=== PATIENT | female | born 1970 | race African-American/Black ===

== ENCOUNTER 2016-05-15 09:36 | Emergency (ER) | payer MEDICAID ==
[~2016-05-15] VITALS: Ht 162.6 cm; Wt 110.0 kg
[2016-05-15 10:16] VITALS: BP 164/72; PULSE 84; RESP 18; TEMP 98.1; O2SAT 98
[2016-05-15 12:02] LABS: BASOPHIL # 0.1 TH/MM3 (0-0.2); EOSINOPHIL # 0.1 TH/MM3 (0-0.4); EOSINOPHIL % 0.9 % (0.0-4.0); HEMATOCRIT 33.1 % (35.0-46.0); HEMO FLAGS DIFF FINAL; LYMPH % 18.4 % (9.0-44.0); LYMPHOCYTE # 1.8 TH/MM3 (1.0-4.8); MEAN CELL VOLUME 84.6 FL (80.0-100.0); MEAN CORPUSCULAR HEMOGLOBIN 28.7 PG (27.0-34.0); MEAN CORPUSCULAR HGB CONC 33.9 % (32.0-36.0); MONO % 7.5 % (0.0-8.0); NEUT % 72.2 % (16.0-70.0); PLATELET COUNT 411 TH/MM3 (150-450); RED BLOOD COUNT 3.91 MIL/MM3 (4.00-5.30); RED CELL DISTRIBUTION WIDTH 14.4 % (11.6-17.2); WHITE BLOOD COUNT 9.6 TH/MM3 (4.0-11.0)
[2016-05-15 12:19] LABS: ANION GAP 8 MEQ/L (5-15); AST (GOT) 10 U/L (15-37); BICARBONATE 23.9 MEQ/L (21.0-32.0); BLOOD UREA NITROGEN 10 MG/DL (7-18); CHLORIDE 104 MEQ/L (98-107); GLOMERULAR FILTRATION RATE 115 ML/MIN (>89); POTASSIUM 3.9 MEQ/L (3.5-5.1); SODIUM (NA) 136 MEQ/L (136-145)
[2016-05-15 12:30] LABS: BLOOD, URINE MOD (NEG); GLUCOSE,URINE NEG (NEG); KETONE, URINE NEG (NEG); MUCUS URINE FEW /lpf (OCC); NITRITE,URINE NEG (NEG); PH, URINE 5.5 (5.0-8.5); SQUAMOUS EPITHELIAL CELL URINE 32 /hpf (0-5); URINE COLOR YELLOW (YELLW/STRAW)
[2016-05-15 12:34] LABS: COMMENT (UR) CULT NOT INDICATED; CULTURE IF INDICATED CULT NOT INDICATED
[2016-05-15 12:36] LABS: ALKALINE PHOSPHATASE 72 U/L (45-117); ALT (GPT) 18 U/L (10-53); BETA HCG QUANT 26060 MIU/ML (0-5); TOTAL BILIRUBIN ADULT 0.2 MG/DL (0.2-1.0)
--- NOTE | 2016-05-15 14:06 | PD ---
HPI Chief Complaint: Related Problem Time Seen by Provider: 11:32 Travel History International Travel<30 days: No Contact w/Intl Traveler<30days: No Traveled to known affect area: No History of Present Illness HPI Patient is a 45-year-old female who comes in because she noticed some spotting when she went to the bathroom earlier today. She is approximately 12-14 weeks , this is her 10th . She says she has occasional cramping and nausea, but this is normal for her. She denies any passage of clots or material. She denies any dysuria. She has not seen an OB yet for this . [facility] Past Medical History Medical History: Denies Significant Hx Diminished Hearing: No Tetanus Vaccination: < 5 Years ?: : 9 Para: 8 Miscarriage: 1 Past Surgical History Section: Yes (X4) Social History Alcohol Use: No Tobacco Use: No Substance Use: No Allergies-Medications (Allergen,Severity, Reaction): Coded Allergies: No Known Allergies (Verified , 05/15/16) Reported Meds & Prescriptions Reported Meds & Active Scripts Active Prenate Mini 18-0.6-0.4-350 mg ( W/O Vit A W/ Fe Carbo) 1 Cap Cap Review of Systems Except as stated in HPI: all other systems reviewed are Neg General / Constitutional: No: Fever, Chills Eyes: No: Blurred Vision HENT: No: Headaches, Lightheadedness Cardiovascular: No: Chest Pain or Discomfort Respiratory: No: Shortness of Breath Gastrointestinal: Positive: Nausea, Abdominal Pain Genitourinary: Positive: Vaginal Bleeding, No: Dysuria Neurologic: No: Weakness, Dizziness Physical Exam Narrative GENERAL: Awake and alert in no acute distress. SKIN: Warm and dry. HEAD: Atraumatic. Normocephalic. EYES: Pupils equal and round. No scleral icterus. ENT: No nasal bleeding or discharge. Mucous membranes pink and moist. NECK: Trachea midline. No JVD. CARDIOVASCULAR: Regular rate and rhythm. No murmur appreciated. RESPIRATORY: No accessory muscle use. Clear to auscultation. Breath sounds equal bilaterally. GASTROINTESTINAL: Abdomen soft, non-tender, nondistended. No CVA tenderness. 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 No bleeding seen. No CMT. MUSCULOSKELETAL: No obvious deformities. No clubbing. No cyanosis. No edema. NEUROLOGICAL: Awake and alert. No obvious cranial nerve deficits. Motor grossly within normal limits. Normal speech. PSYCHIATRIC: Appropriate mood and affect; insight and judgment normal. Data Data Last Documented VS Vital Signs Date Time Temp Pulse Resp B/P Pulse Ox O2 Delivery O2 Flow Rate FiO2 05/15/16 10:16 98.1 84 18 164/72 98 Orders Complete Blood Count With Diff (05/15/16 11:38) Comprehensive Metabolic Panel (05/15/16 11:38) Urinalysis - C+S If Indicated (05/15/16 11:38) Beta Hcg (Quant/Titer) (05/15/16 11:38) Ed Poc Ultrasound (05/15/16 ) Labs Laboratory Tests Test 05/15/16 05/15/16 11:50 12:00 White Blood Count 9.6 TH/MM3 Red Blood Count 3.91 MIL/MM3 Hemoglobin 11.2 GM/DL Hematocrit 33.1 % Mean Corpuscular Volume 84.6 FL Mean Corpuscular Hemoglobin 28.7 PG Mean Corpuscular Hemoglobin 33.9 % Concent Red Cell Distribution Width 14.4 % Platelet Count 411 TH/MM3 Mean Platelet Volume 6.5 FL Neutrophils (%) (Auto) 72.2 % Lymphocytes (%) (Auto) 18.4 % Monocytes (%) (Auto) 7.5 % Eosinophils (%) (Auto) 0.9 % Basophils (%) (Auto) 1.0 % Neutrophils # (Auto) 7.0 TH/MM3 Lymphocytes # (Auto) 1.8 TH/MM3 Monocytes # (Auto) 0.7 TH/MM3 Eosinophils # (Auto) 0.1 TH/MM3 Basophils # (Auto) 0.1 TH/MM3 CBC Comment DIFF FINAL Differential Comment Sodium Level 136 MEQ/L Potassium Level 3.9 MEQ/L Chloride Level 104 MEQ/L Carbon Dioxide Level 23.9 MEQ/L Anion Gap 8 MEQ/L Blood Urea Nitrogen 10 MG/DL Creatinine 0.67 MG/DL Estimat Glomerular Filtration 115 ML/MIN Rate Random Glucose 81 MG/DL Calcium Level 8.3 MG/DL Total Bilirubin 0.2 MG/DL Aspartate Amino Transf 10 U/L (AST/SGOT) Alanine Aminotransferase 18 U/L (ALT/SGPT) Alkaline Phosphatase 72 U/L Total Protein 7.5 GM/DL Albumin 2.9 GM/DL Human Chorionic Gonadotropin, 58907 MIU/ML Quant Urine Color YELLOW Urine Turbidity HAZY Urine pH 5.5 Urine Specific [place] 1.021 Urine Protein TRACE mg/dL Urine Glucose (UA) NEG mg/dL Urine Ketones NEG mg/dL Urine Occult Blood MOD Urine Nitrite NEG Urine Bilirubin NEG Urine Urobilinogen LESS THAN 2.0 MG/DL Urine Leukocyte Esterase SMALL Urine RBC 2 /hpf Urine WBC 3 /hpf Urine Squamous Epithelial 32 /hpf Cells Urine Mucus FEW /lpf Microscopic Urinalysis Comment CULT NOT INDICATED MDM Medical Decision Making Medical Screen Exam Complete: Yes Emergency Medical Condition: Yes Medical Record Reviewed: Yes Differential Diagnosis Threatened versus UTI versus pyelonephritis versus completed miscarriage versus missed Narrative Course Patient is a 45-year-old female who comes in complaining of vaginal spotting. Exam shows no active bleeding at this time. Patient was here previously and has Rh+ blood. Labs sent show hemoglobin within normal limits. Urinalysis is negative for infection. Ultrasound is very limited, however when the hydraulic technician placed the probe on her belly she was able to confirm an IUP. She says that the is greater than 13 weeks, so she cannot do any official ultrasound. As patient is no longer bleeding, and the is seen in the uterus, patient will be discharged home, advised to follow-up with OB. Patient advised to practice pelvic rest. Advised to return to the ED if she has any increased bleeding, or any worsening symptoms. Diagnosis Primary Impression: Threatened Referrals: Edwar Daugherty MD call for appointment Patient Instructions: General Instructions, Threatened Miscarriage (ED) Additional Instructions: Follow up with OB. Practice pelvic rest for the next 1-2 weeks. Drink plenty of fluids. Return to the ED immediately if you have worsening bleeding or any worsening symptoms. Disposition: 01 DISCHARGE HOME Condition: Stable Majo Ng MD May 15, 2016 14:06 Majo Ng MD May 15, 2016 14:06
== END 2016-05-15 14:32 | disposition home or self-care (01) ==
LOC: NEPE 09:36
DX: O20.0 Threatened abortion (principal); Z3A.14 14 weeks gestation of pregnancy
CPT/HCPCS: 80053; 81001; 84702; 85025

== ENCOUNTER → 2016-06-26 | Outpatient (CLI) | payer MEDICAID | LOC: HPND 08:47 | PROVIDERS: ATTEND Obstetrics & Gynecology | DX: O09.522 Supervision of elderly multigravida, second trimester (principal); O99.212 Obesity complicating pregnancy, second trimester; O35.1XX0 Maternal care for (suspected) chromosomal abnormality in fetus, not applicable or unspecified | CPT/HCPCS: 76805 ==

== ENCOUNTER → 2016-07-24 | Outpatient (CLI) | payer MEDICAID | LOC: HPND 10:03 | PROVIDERS: ATTEND Obstetrics & Gynecology | DX: O09.522 Supervision of elderly multigravida, second trimester (principal); O35.1XX0 Maternal care for (suspected) chromosomal abnormality in fetus, not applicable or unspecified; O99.212 Obesity complicating pregnancy, second trimester; Z68.43 Body mass index [BMI] 50.0-59.9, adult; Z3A.23 23 weeks gestation of pregnancy | CPT/HCPCS: 76811 ==

== ENCOUNTER → 2016-08-22 | Outpatient (CLI) | payer MEDICAID | LOC: HPND 13:35 | PROVIDERS: ATTEND Obstetrics & Gynecology | DX: O09.522 Supervision of elderly multigravida, second trimester (principal); O99.212 Obesity complicating pregnancy, second trimester; E66.01 Morbid (severe) obesity due to excess calories; Z68.43 Body mass index [BMI] 50.0-59.9, adult; Z3A.27 27 weeks gestation of pregnancy | CPT/HCPCS: 76816 ==

== ENCOUNTER 2016-09-09 11:01 | Emergency (ER) | payer MEDICAID ==
[~2016-09-09] VITALS: Ht 162.6 cm; Wt 151.5 kg
--- NOTE | 2016-09-09 11:41 | PD ---
HPI Chief Complaint Headache Date Seen: Sep 09, 2016 Time Seen: 11:15 Travel History International Travel<30 Days: No Contact w/Intl Traveler<30Days: No Known Affected Area: No History of Present Illness HPI 46-year-old 10 para 8 Ab1 with 7 living children at 31+ weeks gestation who comes today for pain over her left eye. The patient states that she was concerned this might indicate her blood pressure was 5. She is not taken anything for the pain. She describes it as mild and throbbing. She states that she has this type of headache when she is not and it usually occurs when she is tired. She states that occurred this morning and therefore concerned her that maybe it represented high blood pressure. She denies any visual changes, weakness, dizziness, swelling or abdominal pain. Para: 8 : 10 Miscarriage: 1 History Past Medical History Narrative Medical No known allergies No chronic diseases No medications Obstetric History Obstetric History For prior C-sections, 4 prior vaginal deliveries She receives care at [facility] but can't remember her doctor's name. She states this has been uncomplicated other than delayed diagnosis because she was unaware that she was and thought she might be going through menopause Past Surgical History Narrative Surgical 4 prior C-sections Family History Family History: Negative Social History Alcohol Use: No Tobacco Use: No Substance Abuse: No Allergies-Medications (Allergen,Severity, Reaction): Coded Allergies: No Known Allergies (Verified , 05/15/16) Home Meds Active Scripts W/O Vit A W/ Fe Carbo (Prenate Mini 18-0.6-0.4-350 mg)1 Cap Cap Sample #2 Prov:Crystal Bryant CNM [facility] 04/11/16 Review of Systems Except as stated in HPI: all other systems reviewed are Neg Physical Exam Narrative GENERAL: Well-nourished, well-developed patient. SKIN: Warm and dry. HEAD: Normocephalic and atraumatic. EYES: No scleral icterus. No injection or drainage. ENT: No nasal drainage noted. Mucous membranes pink. Airway patent. NECK: Supple, trachea midline. No JVD. ABDOMEN/GI: Abdomen soft, non-tender, bowel sounds present, no rebound, no guarding Gravid to [-] weeks size Fundal Height: [-] GENITOURINARY: External Genitalia: intact and normal in appearance BUS glands: [-] Cervix: [-] Dilatation: [-] Effacement: [-] Station: [-] Presentation: [-] Membranes: [intact or ruptured] Uterine Contractions: [-] FHT's: Category: [-] Baseline: [-] Reactive: [-] Variability: [-] Decels: [-] EXTREMITIES: No cyanosis or edema. BACK: Nontender without obvious deformity. No CVA tenderness. NEUROLOGICAL: Awake and alert. Motor and sensory grossly within normal limits. Five out of 5 muscle strength in all muscle groups. Normal speech. Data Data Vital Signs Reviewed: Yes MDM Medical Record Reviewed: Yes Narrative Course / MDM Assessment: Grand multipara at 31+ weeks gestation with mild headache and normal blood pressure Plan: The patient was discharged home with instructions to take Tylenol for her headache. She has a visit on Saturday and was encouraged to keep that appointment. Diagnosis Diagnosis: Primary Impression: 31 weeks gestation of Additional Impression: Head ache Disposition: DISCHARGE HOME Scott Bond MD Sep 09, 2016 11:40
== END 2016-09-09 12:42 | disposition home or self-care (01) ==
LOC: HOBED 11:01
DX: O26.93 Pregnancy related conditions, unspecified, third trimester (principal); R51 Headache; Z3A.31 31 weeks gestation of pregnancy
CPT/HCPCS: 99284

== ENCOUNTER → 2016-09-24 | Outpatient (CLI) | payer MEDICAID | LOC: HPND 13:00 | PROVIDERS: ATTEND Obstetrics & Gynecology | DX: O99.213 Obesity complicating pregnancy, third trimester (principal); O09.523 Supervision of elderly multigravida, third trimester | CPT/HCPCS: 76816 ==

== ENCOUNTER 2017-05-13 12:37 | Emergency (ER) | payer MEDICAID ==
[~2017-05-13] VITALS: Ht 162.6 cm; Wt 120.0 kg
[2017-05-13 12:41] VITALS: BP 151/70; PULSE 80; RESP 20; TEMP 99; O2SAT 100
[2017-05-13] MEDS ORDERED: KETOROLAC TROMETHAMINE 30 MG/ML (IVP) VIAL IV PUSH ONE (13:00)
[2017-05-13] MEDS ORDERED: SODIUM CHLORIDE 0.9% FLUSH 10 ML FLUSH IVF PRN (13:00)
--- NOTE | 2017-05-13 13:00 | PD ---
HPI Chief Complaint: Musculoskeletal Complaint Time Seen by Provider: 12:52 Travel History International Travel<30 days: No Contact w/Intl Traveler<30days: No Traveled to known affect area: No History of Present Illness HPI WOKE UP AT 3AM WITH SHARP , RIGHT SIDED CHEST PAIN ALONG MID AXILLARY LINE/ REGION, NONRADIATING, 12/20, STATES WITH OCCASIONAL COUGH/PROD YELLOW SPUTUM WELL...PATIENT STATES WORSENED WITH BREATHING. DENIES ANY ALLEVIATING FACTORS. ...DENIES ASSOC FACTORS SUCH FEVER/N/V/D/MOON/ABDPAIN/BACK PAIN. 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 : 9 Para: 8 Miscarriage: 1 Past Surgical History Section: Yes (X4) Social History Alcohol Use: No Tobacco Use: No Substance Use: No Allergies-Medications (Allergen,Severity, Reaction): Coded Allergies: No Known Allergies (Verified Allergy, Unknown, 05/13/17) Reported Meds & Prescriptions Reported Meds & Active Scripts Active Ultram (Tramadol HCl) 50 Mg Tab 50 Mg PO Q4H PRN Zithromax Z-Manny (Azithromycin) 250 Mg Dspk 250 Mg PO DIRECTED 500 MG (2 tabs) day 1, then 1 tab days 2-5. Physical Exam Narrative GENERAL: SKIN: Warm and dry. HEAD: Atraumatic. Normocephalic. EYES: Pupils equal and round. No scleral icterus. No injection or drainage. ENT: No nasal bleeding or discharge. Mucous membranes pink and moist. NECK: Trachea midline. No JVD. CARDIOVASCULAR: Regular rate and rhythm. RESPIRATORY: No accessory muscle use. Clear to auscultation. Breath sounds equal bilaterally. REPRODUCIBLE CHEST WALL PAIN GASTROINTESTINAL: Abdomen soft, non-tender, nondistended. MUSCULOSKELETAL: Extremities without clubbing, cyanosis, or edema. No obvious deformities. NEUROLOGICAL: Awake and alert. No obvious cranial nerve deficits. Motor grossly within normal limits. Five out of 5 muscle strength in the arms and legs. Normal speech. PSYCHIATRIC: Appropriate mood and affect; insight and judgment normal. Data Data Last Documented VS Orders Orders Complete Blood Count With Diff (05/13/17 12:53) Comprehensive Metabolic Panel (05/13/17 12:53) D-Dimer (05/13/17 12:53) Prothrombin Time / Inr (Pt) (05/13/17 12:53) Act Partial Throm Time (Ptt) (05/13/17 12:53) Troponin I (05/13/17 12:53) Lipase (05/13/17 12:53) Chest, Single Ap (05/13/17 12:53) Ecg Monitoring (05/13/17 12:53) Iv Access Insert/Monitor (05/13/17 12:53) Oximetry (05/13/17 12:53) Sodium Chloride 0.9% Flush (Ns Flush) (05/13/17 13:00) Ed Urine Pregnancytest Poc (05/13/17 12:53) Ketorolac Inj (Toradol Inj) (05/13/17 13:00) Electrocardiogram (05/13/17 13:00) Ct Pulmonary Angiogram (05/13/17 13:50) Iohexol 350 Inj (Omnipaque 350 Inj) (05/13/17 15:35) Ed Discharge Order (05/13/17 16:05) Labs Laboratory Tests Test 05/13/17 13:00 White Blood Count 10.7 TH/MM3 Red Blood Count 4.14 MIL/MM3 Hemoglobin 11.4 GM/DL Hematocrit 34.6 % Mean Corpuscular Volume 83.7 FL Mean Corpuscular Hemoglobin 27.6 PG Mean Corpuscular Hemoglobin Concent 33.0 % Red Cell Distribution Width 14.5 % Platelet Count 395 TH/MM3 Mean Platelet Volume 6.8 FL Neutrophils (%) (Auto) 68.0 % Lymphocytes (%) (Auto) 20.8 % Monocytes (%) (Auto) 8.9 % Eosinophils (%) (Auto) 1.3 % Basophils (%) (Auto) 1.0 % Neutrophils # (Auto) 7.3 TH/MM3 Lymphocytes # (Auto) 2.2 TH/MM3 Monocytes # (Auto) 1.0 TH/MM3 Eosinophils # (Auto) 0.1 TH/MM3 Basophils # (Auto) 0.1 TH/MM3 CBC Comment DIFF FINAL Differential Comment Prothrombin Time 10.0 SEC Prothromb Time International Ratio 1.0 RATIO Activated Partial Thromboplast Time 27.8 SEC D-Dimer Quantitative (PE/DVT) 0.52 MG/L FEU Blood Urea Nitrogen 15 MG/DL Creatinine 0.78 MG/DL Random Glucose 77 MG/DL Total Protein 7.8 GM/DL Albumin 3.0 GM/DL Calcium Level 8.3 MG/DL Alkaline Phosphatase 99 U/L Aspartate Amino Transf (AST/SGOT) 9 U/L Alanine Aminotransferase (ALT/SGPT) 15 U/L Total Bilirubin 0.5 MG/DL Sodium Level 139 MEQ/L Potassium Level 4.0 MEQ/L Chloride Level 109 MEQ/L Carbon Dioxide Level 25.4 MEQ/L Anion Gap 5 MEQ/L Estimat Glomerular Filtration Rate 96 ML/MIN Troponin I LESS THAN 0.02 NG/ML Lipase 104 U/L [facility] Medical Decision Making Medical Screen Exam Complete: Yes Emergency Medical Condition: Yes Medical Record Reviewed: Yes Interpretation(s) NSR 65, NL INTERVALS, NO STEMI PATTERN Differential Diagnosis CHEST WALL PAIN V PLEURISY V PNA V PE Narrative Course CXR NEG FOR PNA/PTX, CT CHEST R/O PE PERFORMED BECAUSE ELEV D DIMER..HOWEVER NEG FOR PE THOUGH IT DID SHOW NODULES, WHICH WERE EXPLAINED TO PATIENT WELL THE NEED TO FOLLOW UP. ELECTROLYTES NEG, NO ANEMIA, NORMAL LIVER/KIDNEY FUNCTIONS. NEG TROPONIN WELL NO STEMI PATTERN ON EKG Diagnosis Primary Impression: Chest wall pain Additional Impression: Pleurisy Patient Instructions: General Instructions, Pleurisy (ED) Scripts Tramadol (Ultram) 50 Mg Tab 50 MG PO Q4H Y for PAIN, #12 TAB 0 Refills Prov: Jonn Poole MD 05/13/17 Azithromycin (Zithromax Z-Manny) 250 Mg Dspk 250 MG PO DIRECTED for Infection, #1 DSPK 0 Refills 500 MG (2 tabs) day 1, then 1 tab days 2-5. Prov: Jonn Poole MD 05/13/17 Disposition: 01 DISCHARGE HOME Condition: Stable Jonn Poole MD May 13, 2017 13:00
[2017-05-13 13:15] VITALS: O2SAT 97
[2017-05-13 13:22] LABS: AUTOMATED NEUTROPHIL # 7.3 TH/MM3 (1.8-7.7); BASOPHIL # 0.1 TH/MM3 (0-0.2); EOSINOPHIL # 0.1 TH/MM3 (0-0.4); EOSINOPHIL % 1.3 % (0.0-4.0); HEMATOCRIT 34.6 % (35.0-46.0); HEMOGLOBIN 11.4 GM/DL (11.6-15.3); LYMPH % 20.8 % (9.0-44.0); LYMPHOCYTE # 2.2 TH/MM3 (1.0-4.8); MEAN CELL VOLUME 83.7 FL (80.0-100.0); MEAN CORPUSCULAR HEMOGLOBIN 27.6 PG (27.0-34.0); MEAN PLATELET VOLUME 6.8 FL (7.0-11.0); MONO % 8.9 % (0.0-8.0); PLATELET COUNT 395 TH/MM3 (150-450); RED BLOOD COUNT 4.14 MIL/MM3 (4.00-5.30); RED CELL DISTRIBUTION WIDTH 14.5 % (11.6-17.2); WHITE BLOOD COUNT 10.7 TH/MM3 (4.0-11.0)
[2017-05-13 13:34] LABS: D-DIMER 0.52 MG/L FEU (0.00-0.50)
[2017-05-13 13:43] LABS: ALT (GPT) 15 U/L (10-53); AST (GOT) 9 U/L (15-37); BICARBONATE 25.4 MEQ/L (21.0-32.0); BLOOD UREA NITROGEN 15 MG/DL (7-18); CALCIUM 8.3 MG/DL (8.5-10.1); CHLORIDE 109 MEQ/L (98-107); CREATININE 0.78 MG/DL (0.50-1.00); GLOMERULAR FILTRATION RATE 96 ML/MIN (>89); GLUCOSE,RANDOM 77 MG/DL (74-106); LIPASE 104 U/L (73-393); SODIUM (NA) 139 MEQ/L (136-145)
[2017-05-13 13:47] LABS: ALKALINE PHOSPHATASE 99 U/L (45-117); TOTAL BILIRUBIN ADULT 0.5 MG/DL (0.2-1.0); TOTAL PROTEIN 7.8 GM/DL (6.4-8.2); TROPONIN I LESS THAN 0.02 NG/ML (0.02-0.05)
--- NOTE | 2017-05-13 13:56 | RADRPT ---
EXAM DATE/TIME: 05/13/2017 13:30 [facility] COMPARISON: No previous studies available for comparison. INDICATIONS : Right lower rib pain today. MEDICAL HISTORY : None. SURGICAL HISTORY : None. ENCOUNTER: Initial ACUITY: 1 day PAIN SCORE: 6/10 LOCATION: Right lower chest FINDINGS: A single view of the chest demonstrates the lungs to be symmetrically aerated without evidence of mas s, infiltrate or effusion. The cardiomediastinal contours are unremarkable. Osseous structures are intact. CONCLUSION: No acute disease. Edwar Duenas MD on May 13, 2017 at 13:54 Board Certified Radiologist. This report was verified electronically.
[2017-05-13] MEDS ORDERED: IOHEXOL 350 MG/ML 10 ML VIAL (for RAD DIAG) IVCONTRAST ONE (15:35)
--- NOTE | 2017-05-13 15:47 | RADRPT ---
EXAM DATE/TIME: 05/13/2017 15:08 [facility] COMPARISON: CHEST SINGLE AP, May 13, 2017, 13:30. INDICATIONS : Right sided chest pain today. IV CONTRAST: 60 cc Omnipaque 350 (iohexol) IV RADIATION DOSE: 25.83 CTDIvol (mGy) ; Patient body habitus MEDICAL HISTORY : None SURGICAL HISTORY : None. ENCOUNTER: Initial ACUITY: 1 day PAIN SCALE: 5/10 LOCATION: Right chest TECHNIQUE: Volumetric scanning of the chest was performed using a pulmonary embolism protocol MIP images were re constructed. Using automated exposure control and adjustment of the mA and/or kV according to patien t size, radiation dose was kept as low as reasonably achievable to obtain optimal diagnostic quality images. DICOM format image data is available electronically for review and comparison. Follow-up recommendations for detected pulmonary nodules are based at a minimum on nodule size and pa tient risk factors according to Fleischner Society Guidelines. FINDINGS: There is a tiny 4-5 mm nodule left lower lobe laterally. There is a tiny 3-4 mm endotracheal nodule a t the level of thoracic inlet most likely benign possibly an area of inspissated mucus. There is no e vidence for PE for technique.There is no pleural effusion. No appreciable pathological adenopathy is seen within the mediastinum. CONCLUSION: 1. There is no evidence for PE for technique. 2. Left lung base nodule most likely benign and endobronchial nodule could be inspissated mucus, repe at noncontrast chest CT is suggested in 6 months as a conservative follow up. Malena Frazier MD on May 13, 2017 at 15:41 Board Certified Radiologist. This report was verified electronically.
[2017-05-13] MEDS ORDERED: ZITHTAB PO (16:01)
[2017-05-13] MEDS ORDERED: TRAM50 PO (16:01)
--- NOTE | 2017-05-14 17:52 | EKG ---
Date Performed: 05/13/2017 Time Performed: 13:29:35 PTAGE: 46 years EKG: Sinus rhythm POSSIBLE LEFT ATRIAL ENLARGEMENT BORDERLINE ECG PREVIOUS TRACING : 12/14/2012 22.52 Compared to prior tracing no significant change DOCTOR: Jesus Alberto Porter Interpretating Date/Time 05/14/2017 17:51:18
== END 2017-05-13 16:51 | disposition home or self-care (01) ==
LOC: NEPE 12:37
DX: R07.89 Other chest pain (principal); R09.1 Pleurisy; R05 Cough
CPT/HCPCS: 71045; 71275; 80053; 83690; 84484; 84703; 85025; 85379; 85610; 85730; 93005; 96374; 99285; J1885; Q9967

== ENCOUNTER 2017-08-17 07:28 | Emergency (ER) | payer BC, MEDICAID ==
[~2017-08-17] VITALS: Ht 162.6 cm; Wt 150.0 kg
[~2017-08-17 07:28] MED LIST: TRAM50 PO; ZITHTAB PO
[2017-08-17 07:34] VITALS: BP 178/79; PULSE 88; RESP 16; TEMP 98.2; O2SAT 99
--- NOTE | 2017-08-17 07:55 | PD ---
HPI Chief Complaint: Pain: Acute or Chronic Time Seen by Provider: 07:42 Travel History International Travel<30 days: No Contact w/Intl Traveler<30days: No Traveled to known affect area: No History of Present Illness HPI 47-year-old female presents to the emergency department with complaint of right wrist pain 1 month and bilateral knee pain 1 year. Denies any injuries. Denies paresthesias, loss of sensation, decreased range of motion, decreased strength to all extremities. Denies fever, vomiting. Has been ambulatory without assistance on bilateral lower extremities. Rates pain 9/10. Knee pain is worse with sitting and lying down. Knee pain is "all over." Better with walking. Wrist pain is worse with movement. Has been taking ibuprofen with no relief of symptoms. No known relieving factors. Has an appointment in September with her primary care provider and does not know the name. No known allergies. Denies significant past medical history. Has no other medical complaints. No other modifying factors or associated signs and symptoms. PFSH Past Medical History Diminished Hearing: No ?: Not : 9 Para: 8 Miscarriage: 1 Past Surgical History Section: Yes (X4) Social History Alcohol Use: No Tobacco Use: No Substance Use: No Allergies-Medications (Allergen,Severity, Reaction): Coded Allergies: No Known Allergies (Verified Allergy, Unknown, 05/13/17) Reported Meds & Prescriptions Reported Meds & Active Scripts Active Ibuprofen 800 Mg Tab 800 Mg PO Q6HR PRN Ultram (Tramadol HCl) 50 Mg Tab 50 Mg PO Q4H PRN Zithromax Z-Manny (Azithromycin) 250 Mg Dspk 250 Mg PO DIRECTED 500 MG (2 tabs) day 1, then 1 tab days 2-5. Review of Systems Except as stated in HPI: all other systems reviewed are Neg Physical Exam Narrative GENERAL: Well-nourished, well-developed black female patient, in no acute distress SKIN: Warm and dry. HEAD: Atraumatic. Normocephalic. EYES: Pupils equal and round. No scleral icterus. No injection or drainage. ENT: Mucosa pink and moist. Airway patent. NECK: Trachea midline. CARDIOVASCULAR: Regular rate. RESPIRATORY: No accessory muscle use. GASTROINTESTINAL: Morbidly obese MUSCULOSKELETAL: Right wrist with tenderness on palpation to the lateral and medial aspect; no erythema ; no edema or ecchymosis; full range of motion; equal fiscal analyst strength bilaterally. Right hand with full range of motion at all joints. Right upper extremity is supple and non-tense with 2+ radial pulse and sensory intact. Bilateral knees are without erythema, edema, ecchymosis; without tenderness on palpation; with full range of motion. Bilateral lower extremities are supple nontender with 2+ pedal pulses and sensory intact without erythema or edema. Patient ambulatory with a normal gait. No obvious deformities. No clubbing. No cyanosis. NEUROLOGICAL: Awake and alert. Oriented 3. No obvious cranial nerve deficits. Motor grossly within normal limits. Normal speech. PSYCHIATRIC: Appropriate mood and affect; insight and judgment normal. Data Data Last Documented VS Vital Signs Date Time Temp Pulse Resp B/P (MAP) Pulse Ox O2 Delivery O2 Flow Rate FiO2 08/17/17 07:34 98.2 88 16 178/79 (112) 99 Orders Orders Wrist, Complete ([id number]) (08/17/17 07:49) [facility] Medical Decision Making Medical Screen Exam Complete: Yes Emergency Medical Condition: Yes Medical Record Reviewed: Yes Differential Diagnosis Carpal tunnel syndrome, wrist sprain, wrist pain, arthritis, bursitis, chronic knee pain Narrative Course 47-year-old female with bilateral knee pain 1 year without injury. Patient is ambulatory with a normal gait. Bilateral knees without erythema, edema. I do not suspect fracture or dislocation and feel that imaging is not necessary at this time. Patient is requesting x-rays of both knees and I instructed patient to address her chronic knee pain to her primary care provider at her scheduled appointment. Patient is also complaining of right wrist pain 1 month. She denies wrist injury. I do not suspect fracture or dislocation and feel that imaging is not necessary, but the patient is requesting x-ray. Shes states she "possibly could have broken it somehow." I will x-ray the wrist secondary to patient request. I offered the patient pain medication and she declined. 0848: Right wrist x-ray concluded: Wrist X-Ray 08/17/17 0749 Signed Impressions: Service Date/Time: Saturday, August 17, 2017 08:04 - CONCLUSION: Normal exam. The patient identifies the area of pain is along the distal radial aspect of the radius. No abnormality identified.. Lyndsay Brewster MD Discussed x-ray findings with the patient. Ibuprofen prescribed for home. Instructed patient to follow up with primary care provider. Patient verbalizes understanding and agreement with treatment plan. Patient is medically cleared and stable for discharge. Discussed reasons to return to the emergency department. Patient agrees with treatment plan. The patients vital signs are stable and the patient is stable for outpatient follow-up and treatment. Patient discharged home, stable and in no acute distress. Diagnosis Primary Impression: Bilateral chronic knee pain Referrals: Orthopaedic Surgeon Primary Care Physician Patient Instructions: General Instructions, Knee Pain (ED) Additional Instructions: Tylenol or ibuprofen as directed and as needed to reduce pain Wrist Splint as needed for support; you can buy a wrist splint from any drug store Knee braces as needed for support; you can buy knee braces from any drugstore Avoid aggravating activity; increase activity as tolerated Follow-up with primary care provider Follow-up with orthopedic surgeon as needed Return to the emergency department immediately with worsening symptoms Med/Other Pt SpecificInfo: Prescription(s) given Scripts Ibuprofen (Ibuprofen) 800 Mg Tab 800 MG PO Q6HR Y for PAIN, #30 TAB 0 Refills Prov: Yin Sierra 08/17/17 Disposition: DISCHARGE HOME Condition: Stable Yin Sierra Aug 17, 2017 07:55
[2017-08-17] MEDS ORDERED: IBUP1TAB7 PO (08:05)
--- NOTE | 2017-08-17 08:37 | RADRPT ---
EXAM DATE/TIME: 08/17/2017 08:04 [facility] COMPARISON: No previous studies available for comparison. INDICATIONS : Pain. MEDICAL HISTORY : None. SURGICAL HISTORY : None. ENCOUNTER: Initial ACUITY: 1 month PAIN SCORE: 9/10 LOCATION: Right Wrist. FINDINGS: Three view examination of the right wrist demonstrates no soft tissue swelling, dislocation, or fract ure. The carpal bones are in normal alignment. The joint spaces are maintained. Bony mineralizatio n is normal. CONCLUSION: Normal exam. The patient identifies the area of pain is along the distal radial aspect of the radius. No abnormality identified.. Lyndsay Brewster MD on August 17, 2017 at 8:34 Board Certified Radiologist. This report was verified electronically.
== END 2017-08-17 08:55 | disposition home or self-care (01) ==
LOC: NEPD 07:28
DX: M25.561 Pain in right knee (principal); M25.562 Pain in left knee; G89.29 Other chronic pain; M25.531 Pain in right wrist
CPT/HCPCS: 73110; 99283